=== PATIENT | male | born 1935 | race Caucasian/White ===

== ENCOUNTER 2018-12-18 09:25 | Inpatient (IN) ==
[2018-12-18] MEDS ORDERED: ONDANSETRON 4 MG/2 ML VIAL ONE (10:12)
[2018-12-18] MEDS ORDERED: MORPHINE 4 MG/1 ML VIAL ONE (10:13)
[2018-12-18] MEDS ORDERED: MORPHINE 4 MG/1 ML VIAL IM STA (10:50)
[2018-12-18] MEDS ORDERED: ONDANSETRON 4 MG/2 ML VIAL IM STA (10:50)
[2018-12-18] MEDS ORDERED: MORPHINE 4 MG/1 ML VIAL IV STA (11:01)
[2018-12-18] MEDS ORDERED: HYDROmorphone 2 MG/1 ML VIAL ONE ×2 (11:35→12:47)
[2018-12-18 11:54] LABS: Basophils # 0.1 10*3/uL (0.0-0.2); Basophils % 0.5 % (0.0-0.8); Eosinophils # 0.6 10*3/uL (0.0-0.87); Eosinophils % 5.1 % (0.00-10.9); Hematocrit 38.9 VOL% (42.0-52.0); Hemoglobin 12.6 GM/DL (14.0-18.0); Immature Granulocytes % 0.3 %; Immature Granulocytes Absolute 0.04 #; Lymphocytes # 1.6 10*3/uL (1.4-4.0); Lymphocytes % 12.9 % (21.2-54.2); Mean Corpuscular HGB Conc 32.4 GM/DL (32-36); Mean Corpuscular Volume 91.5 FL (87-102); Mean Platelet Volume 12.2 FL (9.6-12.0); Monocytes % 5.3 % (1.7-12.7); Neutrophils % 75.9 % (38.7-73.9); Platelet Count 154 T/CUMM (130-400); Red Blood Count 4.25 MC/CUMM (3.8-5.5); Red Cell Distribution Width 14.1 % (9.3-17.3); White Blood Count 12.4 T/CUMM (4-12)
[2018-12-18 12:01] LABS: Osmolality,Calculated 284.4 MOS/KG (273-304)
[2018-12-18 12:15] LABS: Free T4 (Free Thyroxine) 0.95 NG/DL (0.76-1.46); Thyroid Stimulating Hormone 1.71 uIU/ml (0.358-3.74)
[2018-12-18 12:21] LABS: PT Patient Result 10.7 SECS; Partial Thromboplastin Time 25.1 SECS (0-40)
[2018-12-18] MEDS ORDERED: HYDROmorphone 2 MG/1 ML VIAL IV ONE ×2 (12:50→13:14)
[2018-12-18] MEDS ORDERED: ACETAMINOPHEN 325 MG TABLET PO PRN (13:23)
[2018-12-18] MEDS ORDERED: NYSTATIN POWDER 15 GM BOTTLE TOP PRN (13:23)
[2018-12-18] MEDS ORDERED: HYDROmorphone 2 MG TABLET PO PRN (13:23)
[2018-12-18] MEDS ORDERED: ENOXAPARIN 30 MG/0.3 ML SYRINGE SUBCUT ONE (13:23)
[2018-12-18] MEDS ORDERED: ONDANSETRON 4 MG/2 ML VIAL IV PRN (13:23)
[2018-12-18] MEDS ORDERED: DEXTROSE 50% 25 GM/50 ML SYRINGE IV PRN (13:33)
[2018-12-18] MEDS ORDERED: GLUCAGON 1 MG VIAL IM PRN (13:33)
[2018-12-18] MEDS: DOCUSATE SODIUM 100 MG CAPSULE PO SCH ×2 (15:51→21:09)
[2018-12-18] MEDS: SODIUM CHLORIDE 0.9% 1,000 ML IV SCH (15:51)
[2018-12-18] MEDS: PANTOPRAZOLE 40 MG TABLET PO SCH (15:51)
[2018-12-18] MEDS: INSULIN LISPRO 100 UNIT/ML SUBCUT SCH ×2 (16:29→21:08)
[2018-12-18] MEDS: ATORVASTATIN 40 MG TABLET PO SCH (21:09)
[2018-12-19] MEDS: SODIUM CHLORIDE 0.9% 1,000 ML IV SCH ×3 (00:52→16:12)
[2018-12-19 05:56] LABS: Basophils # 0.1 10*3/uL (0.0-0.2); Basophils % 0.6 % (0.0-0.8); Eosinophils # 0.8 10*3/uL (0.0-0.87); Eosinophils % 5.8 % (0.00-10.9); Hematocrit 37.9 VOL% (42.0-52.0); Immature Granulocytes % 0.6 %; Immature Granulocytes Absolute 0.08 #; Lymphocytes # 1.9 10*3/uL (1.4-4.0); Lymphocytes % 14.4 % (21.2-54.2); Mean Corpuscular HGB Conc 31.7 GM/DL (32-36); Mean Corpuscular Volume 92.7 FL (87-102); Mean Platelet Volume 12.1 FL (9.6-12.0); Monocytes % 8.5 % (1.7-12.7); Neutrophils % 70.1 % (38.7-73.9); Platelet Count 138 T/CUMM (130-400); Red Blood Count 4.09 MC/CUMM (3.8-5.5); White Blood Count 13.4 T/CUMM (4-12)
[2018-12-19 06:08] LABS: Calcium 8.4 MG/DL (8.5-10.1); Osmolality,Calculated 280.5 MOS/KG (273-304)
[2018-12-19] MEDS: INSULIN LISPRO 100 UNIT/ML SUBCUT SCH ×4 (08:20→20:38)
[2018-12-19] MEDS ORDERED: PROPOFOL 200 MG/20 ML VIAL IV ONE (10:00)
[2018-12-19] MEDS ORDERED: fentaNYL 100 MCG/2 ML VIAL ONE (10:01)
[2018-12-19] MEDS ORDERED: PHENYLEPHRINE 1 MG/10 ML SYRINGE IV ONE (10:01)
[2018-12-19] MEDS ORDERED: BUPIVACAINE 0.5% 50 ML VIAL ONE (10:01)
[2018-12-19] MEDS ORDERED: ETOMIDATE 40 MG/20 ML VIAL IV ONE (10:01)
[2018-12-19 10:13] LABS: Hematocrit 33.9 VOL% (42.0-52.0)
[2018-12-19 10:28] LABS: Apearance,Urine CLEAR (Clear); Bilirubin,Urine Negative (Negative); Blood, Urine Large mg/dL (Negative); Glucose,Urine (UA) Negative (Negative); Ketones,Urine Negative (Negative); Mucus,Urine Occasional /LPF (Occasional); Nitrite,Urine Negative (Negative); Protein,Urine Negative; RBC,Urine 95 /HPF (0-4); Squamous Epithelial Cell,Urine Occasional /HPF (0-10); Urine Color Yellow (Yellow); Urine Specific Gravity 1.019 (1.001-1.035); Urine Urobilinogen < 2.0 EU/DL (0.2-1.0); WBC,Urine 1 /HPF (0-6)
[2018-12-19] MEDS ORDERED: BUPIVACAINE SPINAL 0.75% 2 ML AMP SPINAL ONE (12:36)
[2018-12-19] MEDS: ASPIRIN EC 81 MG TABLET PO SCH (12:42)
[2018-12-19] MEDS: DOCUSATE SODIUM 100 MG CAPSULE PO SCH ×2 (13:14→20:43)
[2018-12-19] MEDS: LEVOTHYROXINE 88 MCG TABLET PO SCH (13:15)
[2018-12-19] MEDS: TAMSULOSIN 0.4 MG CAPSULE PO SCH (13:15)
[2018-12-19] MEDS: amLODIPine 2.5 MG TABLET PO SCH (13:15)
[2018-12-19] MEDS: PANTOPRAZOLE 40 MG TABLET PO SCH (13:15)
[2018-12-19] MEDS: LISINOPRIL 20 MG TABLET PO SCH (13:15)
[2018-12-19] MEDS: SERTRALINE 50 MG TABLET PO SCH (19:55)
[2018-12-19] MEDS: ATORVASTATIN 40 MG TABLET PO SCH (20:43)
[2018-12-19] MEDS: APIXABAN 2.5 MG TABLET PO SCH (20:43)
[2018-12-20] MEDS: SODIUM CHLORIDE 0.9% 1,000 ML IV SCH ×3 (01:15→20:13)
[2018-12-20 05:23] LABS: Hematocrit 32.2 VOL% (42.0-52.0); Hemoglobin 10.5 GM/DL (14.0-18.0)
[2018-12-20] MEDS: INSULIN LISPRO 100 UNIT/ML SUBCUT SCH ×4 (07:01→20:01)
[2018-12-20] MEDS: DOCUSATE SODIUM 100 MG CAPSULE PO SCH ×2 (08:24→20:12)
[2018-12-20] MEDS: SERTRALINE 50 MG TABLET PO SCH (08:24)
[2018-12-20] MEDS: TAMSULOSIN 0.4 MG CAPSULE PO SCH (08:24)
[2018-12-20] MEDS: LEVOTHYROXINE 88 MCG TABLET PO SCH (08:24)
[2018-12-20] MEDS: PANTOPRAZOLE 40 MG TABLET PO SCH (08:24)
[2018-12-20] MEDS: amLODIPine 2.5 MG TABLET PO SCH (08:24)
[2018-12-20] MEDS: LISINOPRIL 20 MG TABLET PO SCH (08:24)
[2018-12-20] MEDS: APIXABAN 2.5 MG TABLET PO SCH ×2 (08:24→20:12)
[2018-12-20] MEDS: ASPIRIN EC 81 MG TABLET PO SCH (08:24)
[2018-12-20] MEDS ORDERED: TUBERCULIN SKIN TEST 0.1 ML SYRINGE INTRADERM ONE (10:00)
[2018-12-20 20:05] LABS: Apearance,Urine Slightly Hazy (Clear); Bilirubin,Urine Negative (Negative); Blood, Urine Moderate mg/dL (Negative); Glucose,Urine (UA) 50 mg/dL (Negative); Hyaline Casts,Urine 16 /LPF (0-3); Ketones,Urine Negative (Negative); Mucus,Urine Moderate /LPF (Occasional); Nitrite,Urine Negative (Negative); Protein,Urine 100 MG/DL; RBC,Urine 1831 /HPF (0-4); Squamous Epithelial Cell,Urine Occasional /HPF (0-10); Urine Color Red (Yellow); Urine Specific Gravity 1.009 (1.001-1.035); Urine Urobilinogen < 2.0 EU/DL (0.2-1.0); WBC,Urine 11 /HPF (0-6)
[2018-12-20] MEDS: ATORVASTATIN 40 MG TABLET PO SCH (20:12)
[2018-12-20] MEDS ORDERED: HYDROmorphone 2 MG/1 ML VIAL IV PRN (20:44)
[2018-12-20] MEDS: LORazepam 2 MG/1 ML VIAL IV PRN (21:10)
[2018-12-21] MEDS: SODIUM CHLORIDE 0.9% 1,000 ML IV SCH ×2 (06:20→13:57)
[2018-12-21] MEDS: INSULIN LISPRO 100 UNIT/ML SUBCUT SCH ×4 (08:12→21:03)
[2018-12-21 08:14] LABS: Hematocrit 29.2 VOL% (42.0-52.0); Hemoglobin 9.3 GM/DL (14.0-18.0)
[2018-12-21 08:40] LABS: Calcium 8.1 MG/DL (8.5-10.1); Osmolality,Calculated 288.8 MOS/KG (273-304)
[2018-12-21] MEDS: amLODIPine 2.5 MG TABLET PO SCH (09:57)
[2018-12-21] MEDS: ASPIRIN EC 81 MG TABLET PO SCH (09:57)
[2018-12-21] MEDS: PANTOPRAZOLE 40 MG TABLET PO SCH (09:57)
[2018-12-21] MEDS: TAMSULOSIN 0.4 MG CAPSULE PO SCH (09:57)
[2018-12-21] MEDS: LISINOPRIL 20 MG TABLET PO SCH (09:57)
[2018-12-21] MEDS: APIXABAN 2.5 MG TABLET PO SCH ×2 (09:57→21:05)
[2018-12-21] MEDS: SERTRALINE 50 MG TABLET PO SCH (09:57)
[2018-12-21] MEDS: DOCUSATE SODIUM 100 MG CAPSULE PO SCH ×2 (09:57→21:05)
[2018-12-21] MEDS: LEVOTHYROXINE 88 MCG TABLET PO SCH (09:57)
[2018-12-21] MEDS: FINASTERIDE 5 MG TABLET PO SCH (16:54)
[2018-12-21] MEDS: ATORVASTATIN 40 MG TABLET PO SCH (21:05)
[2018-12-22] MEDS: SODIUM CHLORIDE 0.9% 1,000 ML IV SCH ×2 (07:22→07:30)
[2018-12-22 08:22] LABS: Hematocrit 27.1 VOL% (42.0-52.0)
[2018-12-22] MEDS: TAMSULOSIN 0.4 MG CAPSULE PO SCH (09:06)
[2018-12-22] MEDS: ASPIRIN EC 81 MG TABLET PO SCH (09:06)
[2018-12-22] MEDS: DOCUSATE SODIUM 100 MG CAPSULE PO SCH (09:06)
[2018-12-22] MEDS: APIXABAN 2.5 MG TABLET PO SCH (09:06)
[2018-12-22] MEDS: amLODIPine 2.5 MG TABLET PO SCH (09:07)
[2018-12-22] MEDS: LISINOPRIL 20 MG TABLET PO SCH (09:07)
[2018-12-22] MEDS: LEVOTHYROXINE 88 MCG TABLET PO SCH (09:07)
[2018-12-22] MEDS: SERTRALINE 50 MG TABLET PO SCH (09:07)
[2018-12-22] MEDS: PANTOPRAZOLE 40 MG TABLET PO SCH (09:07)
[2018-12-22] MEDS: FINASTERIDE 5 MG TABLET PO SCH (09:07)
[2018-12-22] MEDS: INSULIN LISPRO 100 UNIT/ML SUBCUT SCH ×2 (09:31→12:46)
[2018-12-22] MEDS: LORazepam 2 MG/1 ML VIAL IV PRN (10:39)
[2018-12-22 12:13] VITALS: BP 128/71
== END 2018-12-22 13:40 | DRG 470 ==
LOC: EDBD → EDUNIT# → N.ED 09:25 → N.EDINP 11:04 → N.2E 11:59 → N.3E 12:10
PROVIDERS: ADMIT Family Medicine; ATTEND Family Medicine

== ENCOUNTER 2019-07-20 15:05 | Inpatient (IN) ==
[2019-07-20] MEDS ORDERED: GLUCAGON 1 MG VIAL IM PRN (17:04)
[2019-07-20] MEDS ORDERED: DEXTROSE 10% 250 ML BAG IV PRN (17:04)
[2019-07-20] MEDS ORDERED: ACETAMINOPHEN 325 MG TABLET PO PRN (17:04)
[2019-07-20] MEDS ORDERED: ONDANSETRON 4 MG/2 ML VIAL IV PRN (17:04)
[2019-07-20] MEDS: SODIUM CHLORIDE 0.45% 1,000 ML IV SCH (20:52)
[2019-07-20] MEDS: DOCUSATE SODIUM 100 MG CAPSULE PO SCH (20:52)
[2019-07-21] MEDS: SODIUM CHLORIDE 0.45% 1,000 ML IV SCH ×3 (04:52→22:30)
[2019-07-21] MEDS: DOCUSATE SODIUM 100 MG CAPSULE PO SCH ×2 (09:33→20:12)
[2019-07-21] MEDS: LOPERAMIDE 2 MG CAPSULE PO PRN ×2 (10:33→15:52)
[2019-07-21] MEDS: PANTOPRAZOLE 40 MG TABLET PO SCH (10:34)
[2019-07-22] MEDS: SODIUM CHLORIDE 0.45% 1,000 ML IV SCH ×2 (06:33→12:26)
[2019-07-22] MEDS: DOCUSATE SODIUM 100 MG CAPSULE PO SCH (09:10)
[2019-07-22] MEDS: PANTOPRAZOLE 40 MG TABLET PO SCH (09:10)
[2019-07-22 11:51] VITALS: BP 161/71
[2019-07-22] MEDS ORDERED: KETOROLAC 10 MG TABLET PO PRN (12:09)
== END 2019-07-22 15:30 | DRG 536 ==
LOC: EDBD → EDUNIT# → N.EDINP 15:05 → N.ED 15:05 → N.EDINP 19:11 → N.3E 19:16
PROVIDERS: ADMIT Family Medicine; ATTEND Family Medicine